=== PATIENT | female | born 1960 | race Hispanic/Latino ===

== ENCOUNTER → 2024-08-09 | Day surgery (SDC) | payer OTHER ==
[~2024-08-09] MED LIST: AMLODIPINE BESY10 MG PO; LEVOTHYROXINE112 MCG PO; LOSARTAN POTASS25 MG PO; MAGNESIUM; POTASSIUM
[2024-08-09] MEDS: LACTATED RINGER'S 1,000 ML ONE (09:04)
[2024-08-09 11:05] VITALS: BP 149/86; PULSE 67; RESP 16; TEMP 97; O2SAT 98
== END | disposition home or self-care (01) ==
LOC: OR 08:23
PROVIDERS: ATTEND Internal Medicine Gastroenterology
DX: Z09 Encounter for follow-up examination after completed treatment for conditions other than malignant neoplasm (principal); Z86.0100 Personal history of colon polyps, unspecified; K57.30 Diverticulosis of large intestine without perforation or abscess without bleeding; K64.8 Other hemorrhoids; I10 Essential (primary) hypertension; E78.5 Hyperlipidemia, unspecified; E66.9 Obesity, unspecified; E05.90 Thyrotoxicosis, unspecified without thyrotoxic crisis or storm; M19.90 Unspecified osteoarthritis, unspecified site; Z01.810 Encounter for preprocedural cardiovascular examination; Z79.899 Other long term (current) drug therapy
CPT/HCPCS: 45378; 93005